=== PATIENT | female | born 1995 | race Two or more races ===

== ENCOUNTER 2023-12-18 11:58 | Emergency (ER) | payer MEDICAID, OTHER ==
[~2023-12-18] VITALS: Ht 157.5 cm; Wt 65.8 kg
[2023-12-18 12:21] VITALS: BP 116/74; TEMP 97.4
[2023-12-18] MEDS ORDERED: METH4TAB3 PO (13:46)
[2023-12-18] MEDS ORDERED: LIDO30AD10 TP (13:46)
[2023-12-18] MEDS ORDERED: CYCL5TAB PO (13:46)
[2023-12-18] MEDS ORDERED: IBUP-1955 PO (13:46)
[2023-12-18] MEDS ORDERED: LIDOCAINE 5% (PATCH) 1 EA PATCH TP ONE (13:51)
[2023-12-18] MEDS ORDERED: KETOROLAC TROMETHAMINE 15 MG/ML VIAL ONE (13:51)
[2023-12-18] MEDS ORDERED: CYCLOBENZAPRINE 10 MG TABLET ONE (13:52)
[2023-12-18] MEDS: LIDOCAINE 5% (PATCH) 1 EA PATCH TP STA (13:58)
[2023-12-18] MEDS: KETOROLAC TROMETHAMINE 15 MG/ML VIAL IM ONE (13:58)
[2023-12-18] MEDS: CYCLOBENZAPRINE 10 MG TABLET PO ONE (13:59)
[2023-12-18 14:10] VITALS: O2SAT 100
== END 2023-12-18 14:14 | disposition home or self-care (01) ==
LOC: ER 12:01
DX: M54.41 Lumbago with sciatica, right side (principal)
CPT/HCPCS: 99283; 96372; J1885